=== PATIENT | female | born 1995 | race Caucasian/White ===

== ENCOUNTER → 2020-09-07 12:32 | Outpatient (CLI) | payer OTHER, SELFPAY ==
[2020-09-07 12:59] LABS: Hematocrit 38.9 % (37-47); Hemoglobin 12.7 g/dL (12.0-15.0); Mean Corp Hgb Conc 32.6 g/dL (32-36); Mean Corpuscular Volume 91.7 fL (81-99); Mean Platelet Vol. 10.9 fl (6.2-12.0); Platelet Count 236 K/mm3 (150-450); RBC Distribution Width CV 13.3 % (11.6-14.6); RBC Distribution Width SD 45.3 fl (35.1-43.9); Red Blood Count 4.24 M/mm3 (4.2-5.4); White Blood Count 9.7 K/mm3 (4.4-11.0)
== END ==
PROVIDERS: PCP Obstetrics & Gynecology; Referring Provider Obstetrics & Gynecology; Visit Provider Obstetrics & Gynecology
DX: Z34.03 Encounter for supervision of normal first pregnancy, third trimester (principal)
CPT/HCPCS: 36415; 85027

== ENCOUNTER → 2021-08-06 | Outpatient (CLI) | payer OTHER, SELFPAY | END | disposition home or self-care (01) | PROVIDERS: PCP Obstetrics & Gynecology; Visit Provider Physician Assistant | DX: Z11.52 Encounter for screening for COVID-19 (principal) | CPT/HCPCS: 87635; U0005; U0003 ==

== ENCOUNTER → 2023-03-08 | Outpatient (CLI) | payer OTHER, SELFPAY ==
[2023-03-08 16:30] LABS: hCG Titer Quant., Serum 7 mIU/mL (1-3)
== END | disposition home or self-care (01) ==
LOC: LAB 14:51
PROVIDERS: PCP Obstetrics & Gynecology; Referring Provider Obstetrics & Gynecology; Visit Provider Obstetrics & Gynecology
DX: N92.0 Excessive and frequent menstruation with regular cycle (principal)
CPT/HCPCS: 36415; 84702; 86850; 86900; 86901

== ENCOUNTER → 2023-03-10 | Outpatient (CLI) | payer OTHER, SELFPAY ==
[2023-03-10 16:12] LABS: hCG Titer Quant., Serum 2 mIU/mL (1-3)
== END | disposition home or self-care (01) ==
LOC: LAB 14:49
PROVIDERS: PCP Obstetrics & Gynecology; Visit Provider Obstetrics & Gynecology
DX: N92.0 Excessive and frequent menstruation with regular cycle (principal)
CPT/HCPCS: 36415; 84702

== ENCOUNTER → 2024-07-13 | Outpatient (CLI) | payer OTHER, SELFPAY ==
[2024-07-13 14:40] LABS: Absolute Lymphocyte Count 2.06 X10^3/uL (0.83-4.51); Absolute Neutrophil Count 5.2 X10^3/uL (2.0-7.7); Basophil# 0.03 X10^3/uL; Basophil% 0.4 % (0-1); Eosinophil# 0.08 X10^3/uL; Hematocrit 39.3 % (37-47); Hemoglobin 13.3 g/dL (12.0-15.0); Lymphocyte # 2.06 X10^3/ul (0.83-4.51); Lymphocyte % 26.1 % (19-41); Mean Corp Hgb Conc 33.8 g/dL (32-36); Mean Corpuscular Hgb 31.1 pg (27.0-32.0); Mean Corpuscular Volume 91.8 fL (81-99); Mean Platelet Vol. 10.2 fl (6.2-12.0); Monocyte% 6.3 % (0-10); NRBC Flagged by Analyzer 0 % (0-5); Neutrophil % 66.1 % (47-70); Platelet Count 251 K/mm3 (150-450); RBC Distribution Width CV 12.1 % (11.6-14.6); RBC Distribution Width SD 40.6 fl (35.1-43.9); Red Blood Count 4.28 M/mm3 (4.2-5.4); White Blood Count 7.9 K/mm3 (4.4-11.0)
[2024-07-13 15:31] LABS: Hemoglobin A1c 4.7 % (3.8-5.6)
[2024-07-13 16:54] LABS: HIV - WCH Non-Reactive (Nonreactive); Hepatitis B Surface Antigen Non-Reactive (Nonreactive); Hepatitis C Antibody Non-Reactive (Nonreactive); Rubella IgG Reactive (Nonreactive); Syphilis Antibodies Non-reactive
[2024-07-17 20:07] LABS: Chlamydia By Nucleic Acid AMP Negative (Negative); Gonococcus By Nucleic Acid AMP Negative (Negative)
== END | disposition home or self-care (01) ==
PROVIDERS: PCP Obstetrics & Gynecology; Referring Provider Advanced Practice Midwife; Visit Provider Advanced Practice Midwife
DX: O09.90 Supervision of high risk pregnancy, unspecified, unspecified trimester (principal); E66.9 Obesity, unspecified
CPT/HCPCS: 36415; 83036; 85025; 86703; 86762; 86780; 86803; 86850; 86900; 86901; 87086; 87088; 87340; 87491; 87591

== ENCOUNTER → 2024-10-31 | Outpatient (CLI) | payer OTHER, SELFPAY ==
[2024-10-31 16:26] LABS: Absolute Lymphocyte Count 1.52 X10^3/uL (0.83-4.51); Absolute Neutrophil Count 8.1 X10^3/uL (2.0-7.7); Basophil# 0.02 X10^3/uL; Basophil% 0.2 % (0-1); Eosinophil# 0.08 X10^3/uL; Eosinophils% 0.8 % (0-5); Hematocrit 35.9 % (37-47); Hemoglobin 11.7 g/dL (12.0-15.0); Lymphocyte # 1.52 X10^3/ul (0.83-4.51); Lymphocyte % 14.7 % (19-41); Mean Corp Hgb Conc 32.6 g/dL (32-36); Mean Corpuscular Hgb 30.7 pg (27.0-32.0); Mean Corpuscular Volume 94.2 fL (81-99); Mean Platelet Vol. 10.7 fl (6.2-12.0); Monocyte# 0.55 X10^3/uL; Monocyte% 5.3 % (0-10); NRBC Flagged by Analyzer 0.2 % (0-5); Neutrophil # 8.11 X10^3/uL (2.7-7.7); Neutrophil % 78.6 % (47-70); Platelet Count 236 K/mm3 (150-450); RBC Distribution Width CV 13.3 % (11.6-14.6); RBC Distribution Width SD 45.3 fl (35.1-43.9); Red Blood Count 3.81 M/mm3 (4.2-5.4); White Blood Count 10.3 K/mm3 (4.4-11.0)
[2024-10-31 16:32] LABS: Glucose Challenge Gest 1H 50g 117 mg/dL (70-140)
[2024-10-31 17:05] LABS: HIV - WCH Non-Reactive (Nonreactive); Syphilis Antibodies Non-reactive
== END | disposition home or self-care (01) ==
LOC: BWCLAB 13:45
PROVIDERS: Obstetrics & Gynecology; PCP Obstetrics & Gynecology; Referring Provider Advanced Practice Midwife; Visit Provider Advanced Practice Midwife
DX: O09.90 Supervision of high risk pregnancy, unspecified, unspecified trimester (principal); Z13.1 Encounter for screening for diabetes mellitus; Z3A.00 Weeks of gestation of pregnancy not specified
CPT/HCPCS: 36415; 82950; 85025; 86703; 86780

== ENCOUNTER → 2024-12-25 | Outpatient (CLI) | payer OTHER, SELFPAY ==
--- NOTE | 2024-12-25 08:45 | US_ITS ---
EXAM: US SECOND OR THIRD TRIMESTER , TRANSABDOMINAL CLINICAL INDICATION: growth TECHNIQUE: Transabdominal obstetrical ultrasound of the maternal pelvis and a second or third trimester with image documentation. COMPARISON: No relevant prior studies available. FINDINGS: FETUS: There is an intrauterine gestation. HEART RATE: heart rate is 129 bpm. PRESENTATION: The fetus is in a cephalic position. PLACENTA: The placenta is anterior. No placenta previa. No abruption. AMNIOTIC FLUID: CASPER is 15.7 cm. ANATOMY: Intracranial/face anatomy not seen. Spinal anatomy not seen. Abdominal anatomy not seen. Extremities not seen. Four-chamber heart not seen. Umbilical cord not seen. BIOMETRICS GESTATIONAL AGE: Gestational age 36 weeks 1 day. JENNA: JENNA 01/21/2025. EFW: Estimated weight 3138 g, 78th percentile. BPD: Biparietal diameter 9.5 cm age 38 weeks 4 days, 98th percentile. HC: Head circumference 34.6 cm age 40 weeks 1 day, 96 percentile. AC: Abdominal circumference 33.3 cm age 37 weeks 1 day, 86 percentile. FL: Femur length 7 cm age 35 weeks 5 days, 33rd percentile. MATERNAL: UTERUS: Unremarkable. No myometrial mass. CERVIX: Unremarkable as visualized. The cervix is closed. ADNEXA: Unremarkable. No adnexal masses. FREE FLUID: None. US/OB Limited With Biometrics IMPRESSION: Intrauterine gestation with an average ultrasound age of 38 weeks 1 day and an ultrasound estimated due date of 01/07/2025. heart rate is 129 bpm. Electronically Signed: Hardik Lazar MD at 22:09 EST ,
== END | disposition home or self-care (01) ==
PROVIDERS: PCP Obstetrics & Gynecology; Referring Provider Advanced Practice Midwife; Visit Provider Advanced Practice Midwife
DX: O99.213 Obesity complicating pregnancy, third trimester (principal); Z3A.38 38 weeks gestation of pregnancy
CPT/HCPCS: 76816

== ENCOUNTER → 2024-12-29 | Outpatient (CLI) | payer OTHER, SELFPAY | END | disposition home or self-care (01) | LOC: LABSPEC 16:29 | PROVIDERS: PCP Obstetrics & Gynecology; Referring Provider Obstetrics & Gynecology; Visit Provider Obstetrics & Gynecology | DX: Z34.83 Encounter for supervision of other normal pregnancy, third trimester (principal) | CPT/HCPCS: 87081 ==

== ENCOUNTER → 2025-01-05 | Outpatient (CLI) | payer OTHER, SELFPAY ==
[2025-01-05 16:38] LABS: Glucose Challenge Gest 1H 50g 122 mg/dL (70-140)
== END | disposition home or self-care (01) ==
PROVIDERS: PCP Obstetrics & Gynecology; Referring Provider Obstetrics & Gynecology; Visit Provider Obstetrics & Gynecology
DX: O36.60X0 Maternal care for excessive fetal growth, unspecified trimester, not applicable or unspecified (principal); Z3A.00 Weeks of gestation of pregnancy not specified
CPT/HCPCS: 36415; 82950

== ENCOUNTER 2025-01-11 22:35 | Outpatient (CLI) | payer OTHER, SELFPAY ==
[2025-01-11 22:44] VITALS: BP 134/77; PULSE 113
--- NOTE | 2025-01-11 22:46 | OB.TRI.HP_ITS ---
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 Home Medications ?Medication ?Instructions ?Recorded ?Last Taken ?Type multivitamin no.47-iron fum 27 1 cap PO DAILY pregnanc y 06/30/24 Unknown History mg-folate no.1 1 mg-dha 300 mg capsule (PNV-DHA) Allergy/AdvReac Type Severity Reaction Status Date / Time No Known Allergies Allergy Verified 01/22/25 09:50 Family History Grandmother Cancer Liver Grandfather Cancer lung Social History adopted: No household members: spouse and children number of children: 1 current occupational status: employed current occupation: [employer] pets and animals: Yes pets and animals: dog(s) history of recent travel: No sexually active: Yes Smoking Status: Never smoker alcohol intake: current alcohol intake frequency: a few times a week Alcohol type: other details: Not while substance use type: does not use well-balanced diet: daily or most days caffeine: Yes Type: coffee Number of servings: 1 eating out: 1-3 times/week during the past year weight has: decreased > 10 lbs what type of physical activity do you participate in: none rosalie/christian: [employer] seatbelt use: always do you feel safe at home: Yes additional social history: -Gemma Kim History 3 Elective abortions Hx Para 1 Spontaneous abortions 1 Hx # Term Pregnancies Ectopic pregnancies Hx # Pregnancies Multiple births # of living children 1 Past Pregnancies Del. Date Name GA/Weeks Outcome Route Bth Weight Gen Labor Lgth Anesthesia Del Locatn Provider FOB 09/28/20 Ankur 39 live - full term 9lbs 5oz Male epidural [facility] 03/15/23 5 spontaneous Visit Details Expected Delivery Route/Plan Labor Preferences- CB/BF classes: no labor support person: Mynor labor intervention preferences: [] pain management options preferred: limited intervention cut cord/dad catch: cord : yes PP control planned: discussed discussed possible routes of delivery and associated risks: [] special requests: [] Plans Covid status: [] Flu vaccine: declines Tdap vaccine: declines Rhogam: NA LARC form signed: yes Problem list reviewed and updated with the most current plan of care details and appropriate orders placed. Relevant counseling for the gestational age provided. Continue routine care and follow up unless otherwise noted in visit notes/problem list details OB Flowsheet Initial Weight: 238 lb Date -?-?-?-?-?-?-?-?-?-?-?-?- EGA Weight BP Urine Prot -?-?-?-?-?-?-?-?-?-?-?-?- Glucose FHR FuHt Pres Dilation -?-?-?-?-?-?-?-?-?-?-?-?- Effaced St Visit Note 07/13/24 -?-?-?-?-?-?-?-?-?-?-?-?- 12w 4d 238 lb (+0 oz) 116/76 -?-?-?-?-?-?-?--?-?-?-?-?- 163 -?-?-?-?-?-?-?-?-?-?-?-?- KW- CRL 55mm and not cons with dates. Measuring 12.4 weeks today- 11 day difference. JENNA changed. Declines NIPT. MFM anatomy US ordered. 08/10/24 -?-?-?-?-?-?-?-?-?-?-?-?- 16w 4d 243 lb 2 oz (+5 lb 2 oz) 123/81 Negative -?-?-?-?-?-?-?-?-?-?-?-?- Negative 150 -?-?-?-?-?-?-?-?-?-?-?-?- JV- no lof, vagi nal bleeding, or cramping. no complaints today 09/08/24 -?-?-?-?-?-?-?-?-?-?-?-?- 20w 5d 249 lb (+11 lb) 134/81 Negative -?-?-?-?-?-?-?-?-?-?-?-?- Negative 146 -?-?-?-?-?-?-?-?-?-?-?-?- LC- no vb/crampi ng. normal us. no concerns. 10/02/24 -?-?-?-?-?-?-?-?-?-?-?-?- 24w 1d 257 lb (+19 lb) 134/82 Negative -?-?-?-?-?-?-?-?-?-?-?-?- Negative 140 -?-?-?-?-?-?-?-?-?-?-?-?- SM- no vb lof go od fm no regular ctx 10/31/24 -?-?-?-?-?-?-?-?-?-?-?-?- 28w 2d 265 lb 6 oz (+27 lb 6 oz) 122/84 Negative -?-?-?-?-?-?-?-?-?-?-?-?- Negative 146 28 -?-?-?-?-?-?-?-?-?-?-?-?- MH-No Vb, LOF. G ood FM. Larc. Declines tdap. 28 wk labs pending 11/14/24 -?-?-?-?-?-?-?-?-?-?-?-?- 30w 2d 167 lb (-71 lb) 122/82 Negative -?-?-?-?-?-?-?-?-?-?-?-?- Negative 150 30 -?-?-?-?-?-?-?-?-?-?-?-?- JV- normal gct a nd cbc. declines tdap. info on rsv given. 11/27/24 -?-?-?-?-?-?-?-?-?-?-?-?- 32w 1d 270 lb (+32 lb) 119/80 Negative -?-?-?-?-?-?-?-?-?-?-?-?- Negative 125 33 -?-?-?-?-?-?-?-?-?-?-?-?- JV- no lof, vagi nal bleeding or cramping. declines tdap and unsure about rsv. 12/14/24 -?-?-?-?-?-?-?-?-?-?-?-?- 34w 4d 272 lb (+34 lb) 148/104 129/83 Trace -?-?-?-?-?-?-?-?-?-?-?-?- Negative 130 35 -?-?-?-?-?-?-?-?-?-?-?-?- KW- no vb/lof/ct x. good fm. KW- no vb/lof/ctx. good fm. growth US ordered for BMI 12/29/24 -?-?-?-?-?-?--?-?-?-?-?-?- 36w 5d 273 lb (+35 lb) 132/85 Negative -?-?-?-?-?-?-?-?-?-?-?-?- Negative 140 135 36 Cephalic 0 -?-?-?-?-?-?-?-?-?--?-?-?- 0 SM- no v b lof good fm no regualr ctx 01/05/25 -?-?-?-?-?-?-?-?-?-?-?-?- 37w 5d 274 lb 4 oz (+36 lb 4 oz) 124/84 Negative -?-?-?-?-?-?-?-?-?-?-?-?- Negative 125 39 Cephalic 2 .5 -?-?-?-?-?-?-?-?-?-?-?-?- 60 -3 KW- no vb/ lof/lof/ctx. good fm. labor precautions 01/11/25 -?-?-?-?-?-?-?-?-?-?-?-?- 38w 4d 275 lb 2 oz (+37 lb 2 oz) 116/75 Negative -?-?-?-?-?-?-?-?-?-?-?-?- Negative 124 38 Cephalic 3 -?-?-?-?-?-?-?-?-?-?-?-?- 70 -3 JV- normal repeat glucola. AC 86th%. pt delivered a 9lb 5 oz baby without complications. pt reassured. 01/19/25 -?-?-?-?-?-?-?-?-?-?-?-?- 39w 5d 277 lb 4 oz (+39 lb 4 oz) 130/85 Negative -?-?-?-?-?-?-?-?-?-?-?-?- Negative 130 40 Cephalic 4 -?-?-?-?-?-?-?-?-?-?-?-?- 80 -3 KW- no vb/ lof/ctx. good fm. discussed possible IOL if no labor this weekend. 01/22/25 -?-?-?-?-?-?-?-?-?-?-?-?- 40w 1d 272 lb 4 oz (+34 lb 4 oz) 107/62 Negative -?-?-?-?-?-?-?-?-?-?-?-?- Negative 130 39 Cephalic 4 .5 -?-?-?-?-?-?-?-?-?-?-?-?- 90 -2 KW- no vb/ lof/ctx. good fm. membrane sweep today. IOL for wednesday ROS Constitutional Constitutional: Reports systems reviewed and no addt'l complaints, except as documented Gastrointestinal Gastrointestinal: Denies bloating, constipation, cramping, diarrhea, nausea or vomiting Genitourinary Genitourinary: Reports other Details: Denies vaginal odor, vaginal bleeding, or vaginal discharge ; Denies difficulty urinating or flank pain NST FHR Rate Baby A Baseline: 130 Variability:: Moderate Accelerations:: 15 x 15 Decelerations:: None NST Reactive:: Yes FHR Category:: Category I Assessment & Plan (1) False labor after 37 completed weeks of gestation: COMMENT: unchanged cervical exam with less ctx. safe for d/c home. PLAN: negative for rom. ok to dc to home Charges/Coding Multi Select Codes Urinary/Genital Urinary/Genital CPT Codes: 30860-16 non-stress test Interp
--- NOTE | 2025-01-11 22:46 | OB.TRI.NOTE ---
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 Home Medications ?Medication ?Instructions ?Recorded ?Last Taken ?Type multivitamin no.47-iron fum 27 1 cap PO DAILY 06/30/24 Unknown History mg-folate no.1 1 mg-dha 300 mg capsule (PNV-DHA) Allergy/AdvReac Type Severity Reaction Status Date / Time No Known Allergies Allergy Verified 01/22/25 09:50 Family History Grandmother Cancer Liver Grandfather Cancer lung Social History adopted: No household members: spouse and children number of children: 1 current occupational status: employed current occupation: [employer] pets and animals: Yes pets and animals: dog(s) history of recent travel: No sexually active: Yes Smoking Status: Never smoker alcohol intake: current alcohol intake frequency: a few times a week Alcohol type: other details: Not while substance use type: does not use well-balanced diet: daily or most days caffeine: Yes Type: coffee Number of servings: 1 eating out: 1-3 times/week during the past year weight has: decreased > 10 lbs what type of physical activity do you participate in: none rosalie/mormonism: [employer] seatbelt use: always do you feel safe at home: Yes additional social history: -Gemma Kim History 3 Elective abortions Hx Para 1 Spontaneous abortions 1 Hx # Term Pregnancies Ectopic pregnancies Hx # Pregnancies Multiple births # of living children 1 Past Pregnancies Del. Date Name GA/Weeks Outcome Route Bth Weight Gen Labor Lgth Anesthesia Del Locatn Provider FOB 09/28/20 Ankur 39 live - full term 9lbs 5oz Male epidural [facility] 03/15/23 5 spontaneous Visit Details Expected Delivery Route/Plan Labor Preferences- CB/BF classes: no labor support person: Mynor labor intervention preferences: [] pain management options preferred: limited intervention cut cord/dad catch: cord : yes PP control planned: discussed discussed possible routes of delivery and associated risks: [] special requests: [] Plans Covid status: [] Flu vaccine: declines Tdap vaccine: declines Rhogam: NA LARC form signed: yes Problem list reviewed and updated with the most current plan of care details and appropriate orders placed. Relevant counseling for the gestational age provided. Continue routine care and follow up unless otherwise noted in visit notes/problem list details OB Flowsheet Initial Weight: 238 lb Date <del>?</del> EGA Weight BP Urine Prot <del>?</del> Glucose FHR FuHt Pres Dilation <del>?</del> Effaced St Visit Note 07/13/24 <del>?</del> 12w 4d 238 lb (+0 oz) 116/76 <del>?</del> 163 <del>?</del> KW- CRL 55mm and not cons with dates. Measuring 12.4 weeks today- 11 day difference. JENNA changed. Declines NIPT. MFM anatomy US ordered. 08/10/24 <del>?</del> 16w 4d 243 lb 2 oz (+5 lb 2 oz) 123/81 Negative <del>?</del> Negative 150 <del>?</del> JV- no lof, vaginal bleeding, or cramping. no complaints today 09/08/24 <del>?</del> 20w 5d 249 lb (+11 lb) 134/81 Negative <del>?</del> Negative 146 <del>?</del> LC- no vb/cramping. normal us. no concerns. 10/02/24 <del>?</del> 24w 1d 257 lb (+19 lb) 134/82 Negative <del>?</del> Negative 140 <del>?</del> SM- no vb lof good fm no regular ctx 10/31/24 <del>?</del> 28w 2d 265 lb 6 oz (+27 lb 6 oz) 122/84 Negative <del>?</del> Negative 146 28 <del>?</del> MH-No Vb, LOF. Good FM. Larc. Declines tdap. 28 wk labs pending 11/14/24 <del>?</del> 30w 2d 167 lb (-71 lb) 122/82 Negative <del>?</del> Negative 150 30 <del>?</del> JV- normal gct and cbc. declines tdap. info on rsv given. 11/27/24 <del>?</del> 32w 1d 270 lb (+32 lb) 119/80 Negative <del>?</del> Negative 125 33 <del>?</del> JV- no lof, vaginal bleeding or cramping. declines tdap and unsure about rsv. 12/14/24 <del>?</del> 34w 4d 272 lb (+34 lb) 148/104 129/83 Trace <del>?</del> Negative 130 35 <del>?</del> KW- no vb/lof/ctx. good fm. KW- no vb/lof/ctx. good fm. growth US ordered for BMI 12/29/24 <del>?</del> 36w 5d 273 lb (+35 lb) 132/85 Negative <del>?</del> Negative 140 135 36 Cephalic 0 <del>?</del> 0 SM- no vb lof good fm no regualr ctx 01/05/25 <del>?</del> 37w 5d 274 lb 4 oz (+36 lb 4 oz) 124/84 Negative <del>?</del> Negative 125 39 Cephalic 2.5 <del>?</del> 60 -3 KW- no vb/lof/lof/ctx. good fm. labor precautions 01/11/25 <del>?</del> 38w 4d 275 lb 2 oz (+37 lb 2 oz) 116/75 Negative <del>?</del> Negative 124 38 Cephalic 3 <del>?</del> 70 -3 JV- normal repeat glucola. AC 86th%. pt delivered a 9lb 5 oz baby without complications. pt reassured. 01/19/25 <del>?</del> 39w 5d 277 lb 4 oz (+39 lb 4 oz) 130/85 Negative <del>?</del> Negative 130 40 Cephalic 4 <del>?</del> 80 -3 KW- no vb/lof/ctx. good fm. discussed possible IOL if no labor this weekend. 01/22/25 <del>?</del> 40w 1d 272 lb 4 oz (+34 lb 4 oz) 107/62 Negative <del>?</del> Negative 130 39 Cephalic 4.5 <del>?</del> 90 -2 KW- no vb/lof/ctx. good fm. membrane sweep today. IOL for wednesday ROS Constitutional Constitutional: Reports systems reviewed and no addt'l complaints, except as documented Gastrointestinal Gastrointestinal: Denies bloating, constipation, cramping, diarrhea, nausea or vomiting Genitourinary Genitourinary: Reports other Details: Denies vaginal odor, vaginal bleeding, or vaginal discharge ; Denies difficulty urinating or flank pain NST FHR Rate Baby A Baseline: 130 Variability:: Moderate Accelerations:: 15 x 15 Decelerations:: None NST Reactive:: Yes FHR Category:: Category I Assessment & Plan (1) False labor after 37 completed weeks of gestation: COMMENT: unchanged cervical exam with less ctx. safe for d/c home. PLAN: negative for rom. ok to dc to home Charges/Coding Multi Select Codes Urinary/Genital Urinary/Genital CPT Codes: 94918-57 non-stress test Interp
[2025-01-11 22:50] VITALS: RESP 16; TEMP 36.7
[2025-01-11 23:09] VITALS: BMI 43.2
[2025-01-11 23:35] LABS: ROM Internal Control Test YES-OK TO RESULT pt. (Internal QC); ROM Patient Test Negative (Negative)
[2025-01-11 23:36] LABS: Record Kit Lot#, ROM+ K2871
== END 2025-01-11 23:50 | disposition home or self-care (01) ==
LOC: WPOUT 22:38 → WP 22:38
PROVIDERS: PCP Obstetrics & Gynecology; Referring Provider Obstetrics & Gynecology; Visit Provider Obstetrics & Gynecology
DX: O47.1 False labor at or after 37 completed weeks of gestation (principal); Z3A.38 38 weeks gestation of pregnancy; Z87.59 Personal history of other complications of pregnancy, childbirth and the puerperium
CPT/HCPCS: 59050; 84112; 99221; G0378

== ENCOUNTER 2025-01-13 22:03 | Outpatient (CLI) | payer OTHER, SELFPAY ==
[2025-01-13 22:22] VITALS: PULSE 106; RESP 14; TEMP 37.3; O2SAT 96
[2025-01-13 22:23] VITALS: BP 119/72; PULSE 105
[2025-01-13 22:39] VITALS: BMI 43.1
--- NOTE | 2025-01-16 13:20 | OB.TRI.HP_ITS ---
HPI - General General Date of Service: 01/13/25 Chief Complaint: contractions HPI Narrative HEIDI PACKER, is a 29 F who presents at 38.6 with contractions at home with worsening intensity. denies lof/vb. has active fetus. 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 Home Medications ?Medication ?Instructions ?Recorded ?Last Taken ?Type multivitamin no.47-iron fum 27 1 cap PO DAILY pregnanc y 06/30/24 Unknown History mg-folate no.1 1 mg-dha 300 mg capsule (PNV-DHA) Allergy/AdvReac Type Severity Reaction Status Date / Time No Known Allergies Allergy Verified 01/13/25 22:31 Family History Grandmother Cancer Liver Grandfather Cancer lung Social History adopted: No household members: spouse and children number of children: 1 current occupational status: employed current occupation: [employer] pets and animals: Yes pets and animals: dog(s) history of recent travel: No sexually active: Yes Smoking Status: Never smoker alcohol intake: current alcohol intake frequency: a few times a week Alcohol type: other details: Not while substance use type: does not use well-balanced diet: daily or most days caffeine: Yes Type: coffee Number of servings: 1 eating out: 1-3 times/week during the past year weight has: decreased > 10 lbs what type of physical activity do you participate in: none rosalie/pentecostalism: Judaism seatbelt use: always do you feel safe at home: Yes additional social history: -[employer]- [employer] History 3 Elective abortions Hx Para 1 Spontaneous abortions 1 Hx # Term Pregnancies Ectopic pregnancies Hx # Pregnancies Multiple births # of living children 1 Past Pregnancies Del. Date Name GA/Weeks Outcome Route Bth Weight Gen Labor Lgth Anesthesia Del Locatn Provider FOB 09/28/20 Ankur 39 live - full term 9lbs 5oz Male epidural [facility] 03/15/23 5 spontaneous Visit Details Expected Delivery Route/Plan Labor Preferences- CB/BF classes: no labor support person: Mynor labor intervention preferences: [] pain management options preferred: limited intervention cut cord/dad catch: cord : yes PP control planned: discussed discussed possible routes of delivery and associated risks: [] special requests: [] Plans Covid status: [] Flu vaccine: declines Tdap vaccine: declines Rhogam: NA LARC form signed: yes Problem list reviewed and updated with the most current plan of care details and appropriate orders placed. Relevant counseling for the gestational age provided. Continue routine care and follow up unless otherwise noted in visit notes/problem list details OB Flowsheet Initial Weight: 238 lb Date -?-?-?-?-?-?-?-?-?-?-?-?- EGA Weight BP Urine Prot -?-?-?-?-?-?-?-?-?-?-?-?- Glucose FHR FuHt Pres Dilation -?-?-?-?-?-?-?-?-?-?-?-?- Effaced St Visit Note 07/13/24 -?-?-?-?-?-?-?-?-?-?-?-?- 12w 4d 238 lb (+0 oz) 116/76 -?-?-?-?-?-?-?-?-?-?-?-?- 163 -?-?-?-?-?-?-?-?-?-?-?-?- KW- CRL 55mm and not cons with dates. Measuring 12.4 weeks today- 11 day difference. JENNA changed. Declines NIPT. MFM anatomy US ordered. 08/10/24 -?-?-?-?-?-?-?-?-?-?-?-?- 16w 4d 243 lb 2 oz (+5 lb 2 oz) 123/81 Negative -?-?-?-?-?-?-?-?-?-?-?-?- Negative 150 -?-?-?-?-?-?-?-?-?-?-?-?- JV- no lof, vagi nal bleeding, or cramping. no complaints today 09/08/24 -?-?-?-?-?-?-?-?-?-?-?-?- 20w 5d 249 lb (+11 lb) 134/81 Negative -?-?-?-?-?-?-?-?-?-?-?-?- Negative 146 -?-?-?-?-?-?-?-?-?-?-?-?- LC- no vb/crampi ng. normal us. no concerns. 10/02/24 -?-?-?-?-?-?-?-?-?-?-?-?- 24w 1d 257 lb (+19 lb) 134/82 Negative -?-?-?-?-?-?-?-?-?-?-?-?- Negative 140 -?-?-?-?-?-?-?-?-?-?-?-?- SM- no vb lof go od fm no regular ctx 10/31/24 -?-?-?-?-?-?-?-?-?-?-?-?- 28w 2d 265 lb 6 oz (+27 lb 6 oz) 122/84 Negative -?-?-?-?-?-?-?-?-?-?-?-?- Negative 146 28 -?-?-?-?-?-?-?-?-?-?-?-?- MH-No Vb, LOF. G ood FM. Larc. Declines tdap. 28 wk labs pending 11/14/24 -?-?-?-?-?-?-?-?-?-?-?-?- 30w 2d 167 lb (-71 lb) 122/82 Negative -?-?-?-?-?-?-?-?-?-?-?-?- Negative 150 30 -?-?-?-?-?-?-?-?-?-?-?-?- JV- normal gct a nd cbc. declines tdap. info on rsv given. 11/27/24 -?-?-?-?-?-?-?-?-?-?-?-?- 32w 1d 270 lb (+32 lb) 119/80 Negative -?-?-?-?-?-?-?-?-?-?-?-?- Negative 125 33 -?-?-?-?-?-?-?-?-?-?-?-?- JV- no lof, vagi nal bleeding or cramping. declines tdap and unsure about rsv. 12/14/24 -?-?-?-?-?-?-?-?-?-?-?-?- 34w 4d 272 lb (+34 lb) 148/104 129/83 Trace -?-?-?-?-?-?-?-?-?-?-?-?- Negative 130 35 -?-?-?-?-?-?-?-?-?-?-?-?- KW- no vb/lof/ct x. good fm. KW- no vb/lof/ctx. good fm. growth US ordered for BMI 12/29/24 -?-?-?-?-?-?-?-?-?-?-?-?- 36w 5d 273 lb (+35 lb) 132/85 Negative -?-?-?-?-?-?-?-?-?-?-?-?- Negative 140 135 36 Cephalic 0 -?-?-?-?-?-?-?-?-?-?-?-?- 0 SM- no v b lof good fm no regualr ctx 01/05/25 -?-?-?-?-?-?-?-?-?-?-?-?- 37w 5d 274 lb 4 oz (+36 lb 4 oz) 124/84 Negative -?-?-?-?-?-?-?-?-?-?-?-?- Negative 125 39 Cephalic 2 .5 -?-?-?-?-?-?-?-?-?-?-?-?- 60 -3 KW- no vb/ lof/lof/ctx. good fm. labor precautions 01/11/25 -?-?-?-?-?-?-?-?-?-?-?-?- 38w 4d 275 lb 2 oz (+37 lb 2 oz) 116/75 Negative -?-?-?-?-?-?-?-?-?-?-?-?- Negative 124 38 Cephalic 3 -?-?-?-?-?-?-?-?-?-?-?-?- 70 -3 JV- normal repeat glucola. AC 86th%. pt delivered a 9lb 5 oz baby without complications. pt reassured. NST FHR Rate Baby A Baseline: 135 Variability:: Moderate Accelerations:: 15 x 15 Decelerations:: None NST Reactive:: Yes FHR Category:: Category I Uterine Activity:: irregular Assessment & Plan (1) False labor after 37 completed weeks of gestation: COMMENT: unchanged cervical exam with less ctx. safe for d/c home. PLAN: Plan Patient presents for triage evaluation secondary to contractions at home, once to hospital, contractions dissipated and no longer feeling them. FHT: Moderate variability reactive no decelerations category I tracing Rayne: irregular Contractions Assessment and plan: Reactive NST, reassuring maternal and status patient discharged to home to follow-up in office/prn. labor precautions provided. See problem list details for additional plan information. Charges/Coding Procedures Urinary/Genital [id number]: 79862-52 non-stress test Interp
--- NOTE | 2025-01-16 13:20 | OB.TRI.NOTE ---
HPI - General General Date of Service: 01/13/25 Chief Complaint: contractions HPI Narrative HEIDI PACKER, is a 29 F who presents at 38.6 with contractions at home with worsening intensity. denies lof/vb. has active fetus. 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 Home Medications ?Medication ?Instructions ?Recorded ?Last Taken ?Type multivitamin no.47-iron fum 27 1 cap PO DAILY 06/30/24 Unknown History mg-folate no.1 1 mg-dha 300 mg capsule (PNV-DHA) Allergy/AdvReac Type Severity Reaction Status Date / Time No Known Allergies Allergy Verified 01/13/25 22:31 Family History Grandmother Cancer Liver Grandfather Cancer lung Social History adopted: No household members: spouse and children number of children: 1 current occupational status: employed current occupation: [employer] pets and animals: Yes pets and animals: dog(s) history of recent travel: No sexually active: Yes Smoking Status: Never smoker alcohol intake: current alcohol intake frequency: a few times a week Alcohol type: other details: Not while substance use type: does not use well-balanced diet: daily or most days caffeine: Yes Type: coffee Number of servings: 1 eating out: 1-3 times/week during the past year weight has: decreased > 10 lbs what type of physical activity do you participate in: none rosalie/cheondoism: Taoist seatbelt use: always do you feel safe at home: Yes additional social history: -Mynor- Judy History 3 Elective abortions Hx Para 1 Spontaneous abortions 1 Hx # Term Pregnancies Ectopic pregnancies Hx # Pregnancies Multiple births # of living children 1 Past Pregnancies Del. Date Name GA/Weeks Outcome Route Bth Weight Infant Gen Labor Lgth Anesthesia Del Locatn Provider FOB 09/28/20 Ankur 39 live - full term 9lbs 5oz Male epidural [facility] 03/15/23 5 spontaneous Visit Details Expected Delivery Route/Plan Labor Preferences- CB/BF classes: no labor support person: Mynor labor intervention preferences: [] pain management options preferred: limited intervention cut cord/dad catch: cord : yes PP control planned: discussed discussed possible routes of delivery and associated risks: [] special requests: [] Plans Covid status: [] Flu vaccine: declines Tdap vaccine: declines Rhogam: NA LARC form signed: yes Problem list reviewed and updated with the most current plan of care details and appropriate orders placed. Relevant counseling for the gestational age provided. Continue routine care and follow up unless otherwise noted in visit notes/problem list details OB Flowsheet Initial Weight: 238 lb Date <del>?</del> EGA Weight BP Urine Prot <del>?</del> Glucose FHR FuHt Pres Dilation <del>?</del> Effaced St Visit Note 07/13/24 <del>?</del> 12w 4d 238 lb (+0 oz) 116/76 <del>?</del> 163 <del>?</del> KW- CRL 55mm and not cons with dates. Measuring 12.4 weeks today- 11 day difference. JENNA changed. Declines NIPT. MFM anatomy US ordered. 08/10/24 <del>?</del> 16w 4d 243 lb 2 oz (+5 lb 2 oz) 123/81 Negative <del>?</del> Negative 150 <del>?</del> JV- no lof, vaginal bleeding, or cramping. no complaints today 09/08/24 <del>?</del> 20w 5d 249 lb (+11 lb) 134/81 Negative <del>?</del> Negative 146 <del>?</del> LC- no vb/cramping. normal us. no concerns. 10/02/24 <del>?</del> 24w 1d 257 lb (+19 lb) 134/82 Negative <del>?</del> Negative 140 <del>?</del> SM- no vb lof good fm no regular ctx 10/31/24 <del>?</del> 28w 2d 265 lb 6 oz (+27 lb 6 oz) 122/84 Negative <del>?</del> Negative 146 28 <del>?</del> MH-No Vb, LOF. Good FM. Larc. Declines tdap. 28 wk labs pending 11/14/24 <del>?</del> 30w 2d 167 lb (-71 lb) 122/82 Negative <del>?</del> Negative 150 30 <del>?</del> JV- normal gct and cbc. declines tdap. info on rsv given. 11/27/24 <del>?</del> 32w 1d 270 lb (+32 lb) 119/80 Negative <del>?</del> Negative 125 33 <del>?</del> JV- no lof, vaginal bleeding or cramping. declines tdap and unsure about rsv. 12/14/24 <del>?</del> 34w 4d 272 lb (+34 lb) 148/104 129/83 Trace <del>?</del> Negative 130 35 <del>?</del> KW- no vb/lof/ctx. good fm. KW- no vb/lof/ctx. good fm. growth US ordered for BMI 12/29/24 <del>?</del> 36w 5d 273 lb (+35 lb) 132/85 Negative <del>?</del> Negative 140 135 36 Cephalic 0 <del>?</del> 0 SM- no vb lof good fm no regualr ctx 01/05/25 <del>?</del> 37w 5d 274 lb 4 oz (+36 lb 4 oz) 124/84 Negative <del>?</del> Negative 125 39 Cephalic 2.5 <del>?</del> 60 -3 KW- no vb/lof/lof/ctx. good fm. labor precautions 01/11/25 <del>?</del> 38w 4d 275 lb 2 oz (+37 lb 2 oz) 116/75 Negative <del>?</del> Negative 124 38 Cephalic 3 <del>?</del> 70 -3 JV- normal repeat glucola. AC 86th%. pt delivered a 9lb 5 oz baby without complications. pt reassured. NST FHR Rate Baby A Baseline: 135 Variability:: Moderate Accelerations:: 15 x 15 Decelerations:: None NST Reactive:: Yes FHR Category:: Category I Uterine Activity:: irregular Assessment & Plan (1) False labor after 37 completed weeks of gestation: COMMENT: unchanged cervical exam with less ctx. safe for d/c home. PLAN: Plan Patient presents for triage evaluation secondary to contractions at home, once to hospital, contractions dissipated and no longer feeling them. FHT: Moderate variability reactive no decelerations category I tracing [place]: irregular Contractions Assessment and plan: Reactive NST, reassuring maternal and status patient discharged to home to follow-up in office/prn. labor precautions provided. See problem list details for additional plan information. Charges/Coding Procedures Urinary/Genital [id number]: [id number] non-stress test Interp
== END 2025-01-13 23:58 | disposition home or self-care (01) ==
LOC: WPOUT 22:11 → WP 22:12
PROVIDERS: Visit Provider Registered Nurse
DX: O47.1 False labor at or after 37 completed weeks of gestation (principal); Z3A.38 38 weeks gestation of pregnancy
CPT/HCPCS: 59025; 59050; 99221; G0378

== ENCOUNTER 2025-01-26 10:22 | Inpatient (IN) | payer OTHER, SELFPAY ==
[2025-01-26] VITALS (42 sets, daily range): BP systolic 103–164; BP diastolic 51–87; PULSE 83–117; RESP 16–18; TEMP 36.2–37.1; O2SAT 94–100; BMI 41.8
[2025-01-26 10:06] LABS: ROM Internal Control Test YES-OK TO RESULT pt. (Internal QC)
[2025-01-26 10:08] LABS: ROM Patient Test POSITIVE (Negative); Record Kit Lot#, ROM+ K2871
[2025-01-26] MEDS: Lactated Ringers 1,000 ML 50 ML IV (10:50)
[2025-01-26 11:24] LABS: Absolute Neutrophil Count 10.3 X10^3/uL (2.0-7.7); Basophil# 0.03 X10^3/uL; Basophil% 0.2 % (0-1); Eosinophil# 0.07 X10^3/uL; Eosinophils% 0.5 % (0-5); Hematocrit 39.3 % (37-47); Hemoglobin 13.1 g/dL (12.0-15.0); Lymphocyte % 15.6 % (19-41); Mean Corp Hgb Conc 33.3 g/dL (32-36); Mean Corpuscular Hgb 30.1 pg (27.0-32.0); Mean Corpuscular Volume 90.3 fL (81-99); Mean Platelet Vol. 11.5 fl (6.2-12.0); Monocyte# 0.96 X10^3/uL; Monocyte% 7.1 % (0-10); NRBC Flagged by Analyzer 0 % (0-5); Neutrophil # 10.26 X10^3/uL (2.7-7.7); Neutrophil % 76.2 % (47-70); Platelet Count 267 K/mm3 (150-450); RBC Distribution Width CV 13.7 % (11.6-14.6); RBC Distribution Width SD 45.1 fl (35.1-43.9); Red Blood Count 4.35 M/mm3 (4.2-5.4); White Blood Count 13.5 K/mm3 (4.4-11.0)
[2025-01-26 11:44] LABS: Syphilis Antibodies Nonreactive (Nonreactive)
[2025-01-26] MEDS: Oxytocin 15 Units/NS 250ml 15 UNITS/250 ML IV.SOLN 2 UNITS IV (12:32)
--- NOTE | 2025-01-26 12:46 | HP.PCM.OB_ITS ---
HPI - General General Date of Admission: 01/26/25 HPI Narrative HEIDI PACKER, is a 29 F who presents at 40.5 awoke with saturated pajamas around 0630. active fetus, denies consistent or painful contractions. no vb. Maternal Data Information JENNA Calculator Estimated Delivery Date Method Current WG Current Estimate 01/21/25 Ultrasound #1 40w 5d Other Estimates 02/01/25 LMP (Certain) 39w 1d Final JENNA: 01/21/25 Gestational age: 40.5 PFSH PFSH Medical History Varicose veins during Macrosomia affecting management of mother Home Medications ?Medication ?Instructions ?Recorded ?Last Taken ?Type multivitamin no.47-iron fum 27 1 cap PO DAILY pregnanc y 06/30/24 01/25/25 History mg-folate no.1 1 mg-dha 300 mg capsule (PNV-DHA) Allergy/AdvReac Type Severity Reaction Status Date / Time No Known Allergies Allergy Verified 01/26/25 09:37 Family History Grandmother Cancer Liver Grandfather Cancer lung Social History adopted: No household members: spouse and children number of children: 1 current occupational status: employed current occupation: [employer] pets and animals: Yes pets and animals: dog(s) history of recent travel: No sexually active: Yes Smoking Status: Never smoker alcohol intake: current alcohol intake frequency: a few times a week Alcohol type: other details: Not while substance use type: does not use well-balanced diet: daily or most days caffeine: Yes Type: coffee Number of servings: 1 eating out: 1-3 times/week during the past year weight has: decreased > 10 lbs what type of physical activity do you participate in: none rosalie/bahai: [employer] seatbelt use: always do you feel safe at home: Yes additional social history: -Mynor- [employer] History 3 Elective abortions Hx Para 1 Spontaneous abortions 1 Hx # Term Pregnancies Ectopic pregnancies Hx # Pregnancies Multiple births # of living children 1 Past Pregnancies Del. Date Name GA/Weeks Outcome Route Bth Weight Infant Gen Labor Lgth Anesthesia Del Locatn Provider FOB 09/28/20 Ankur 39 live - full term 9lbs 5oz Male epidural [facility] 03/15/23 5 spontaneous Visit Details Expected Delivery Route/Plan Labor Preferences- CB/BF classes: no labor support person: Mynor labor intervention preferences: [] pain management options preferred: limited intervention cut cord/dad catch: cord : yes PP control planned: discussed discussed possible routes of delivery and associated risks: [] special requests: [] Plans Covid status: [] Flu vaccine: declines Tdap vaccine: declines Rhogam: NA LARC form signed: yes Problem list reviewed and updated with the most current plan of care details and appropriate orders placed. Relevant counseling for the gestational age provided. Continue routine care and follow up unless otherwise noted in visit notes/problem list details OB Flowsheet Initial Weight: 238 lb Date -?-?-?-?-?-?-?-?-?-?-?-?- EGA Weight BP Urine Prot -?-?-?-?-?-?-?-?-?-?-?-?- Glucose FHR FuHt Pres Dilation -?-?-?-?-?-?-?-?-?-?-?-?- Effaced St Visit Note 07/13/24 -?-?-?-?-?-?-?-?-?-?-?-?- 12w 4d 238 lb (+0 oz) 116/76 -?-?-?-?-?-?-?-?-?-?-?-?- 163 -?-?-?-?-?-?-?-?-?-?-?-?- KW- CRL 55mm and not cons with dates. Measuring 12.4 weeks today- 11 day difference. JENNA changed. Declines NIPT. MFM anatomy US ordered. 08/10/24 -?-?-?-?-?-?-?-?-?-?-?-?- 16w 4d 243 lb 2 oz (+5 lb 2 oz) 123/81 Negative -?-?-?-?-?-?-?-?-?-?-?-?- Negative 150 -?-?-?-?-?-?-?-?-?-?-?-?- JV- no lof, vagi nal bleeding, or cramping. no complaints today 09/08/24 -?-?-?-?-?-?-?-?-?-?-?-?- 20w 5d 249 lb (+11 lb) 134/81 Negative -?-?-?-?-?-?-?-?-?-?-?-?- Negative 146 -?-?-?-?-?-?-?-?-?-?-?-?- LC- no vb/crampi ng. normal us. no concerns. 10/02/24 -?-?-?-?-?-?-?-?-?-?-?-?- 24w 1d 257 lb (+19 lb) 134/82 Negative -?-?-?-?-?-?-?-?-?-?-?-?- Negative 140 -?-?-?-?-?-?-?-?-?-?-?-?- SM- no vb lof go od fm no regular ctx 10/31/24 -?-?-?-?-?-?-?-?-?-?-?-?- 28w 2d 265 lb 6 oz (+27 lb 6 oz) 122/84 Negative -?-?-?-?-?-?-?-?-?-?-?-?- Negative 146 28 -?-?-?-?-?-?-?-?-?-?-?-?- MH-No Vb, LOF. G ood FM. Larc. Declines tdap. 28 wk labs pending 11/14/24 -?-?-?-?-?-?-?-?-?-?-?-?- 30w 2d 167 lb (-71 lb) 122/82 Negative -?-?-?-?-?--?-?-?-?-?-?-?- Negative 150 30 -?-?-?-?-?-?-?-?-?-?-?-?- JV- normal gct a nd cbc. declines tdap. info on rsv given. 11/27/24 -?-?-?-?-?-?-?-?-?-?-?-?- 32w 1d 270 lb (+32 lb) 119/80 Negative -?-?-?-?-?-?-?-?-?-?-?-?- Negative 125 33 -?-?-?-?-?-?-?-?-?-?-?-?- JV- no lof, vagi nal bleeding or cramping. declines tdap and unsure about rsv. 12/14/24 -?-?-?-?-?-?-?-?-?-?-?-?- 34w 4d 272 lb (+34 lb) 148/104 129/83 Trace -?-?-?-?-?-?-?-?-?-?-?-?- Negative 130 35 -?-?-?-?-?-?-?-?-?-?-?-?- KW- no vb/lof/ct x. good fm. KW- no vb/lof/ctx. good fm. growth US ordered for BMI 12/29/24 -?-?-?-?-?-?-?-?-?-?-?-?- 36w 5d 273 lb (+35 lb) 132/85 Negative -?-?-?-?-?-?-?-?-?-?-?-?- Negative 140 135 36 Cephalic 0 -?-?-?-?-?-?-?-?-?-?-?-?- 0 SM- no v b lof good fm no regualr ctx 01/05/25 -?-?-?-?-?-?-?-?-?-?-?-?- 37w 5d 274 lb 4 oz (+36 lb 4 oz) 124/84 Negative -?-?-?-?-?-?-?-?-?-?-?-?- Negative 125 39 Cephalic 2 .5 -?-?-?-?-?-?-?-?-?-?-?-?- 60 -3 KW- no vb/ lof/lof/ctx. good fm. labor precautions 01/11/25 -?-?-?-?-?-?-?-?-?-?-?-?- 38w 4d 275 lb 2 oz (+37 lb 2 oz) 116/75 Negative -?-?-?-?-?-?-?-?-?-?-?-?- Negative 124 38 Cephalic 3 -?-?-?-?-?-?-?-?-?-?-?-?- 70 -3 JV- normal repeat glucola. AC 86th%. pt delivered a 9lb 5 oz baby without complications. pt reassured. 01/19/25 -?-?-?-?-?-?-?-?-?-?-?-?- 39w 5d 277 lb 4 oz (+39 lb 4 oz) 130/85 Negative -?-?-?-?-?-?-?-?-?-?-?-?- Negative 130 40 Cephalic 4 -?-?-?-?-?-?-?-?-?-?-?-?- 80 -3 KW- no vb/ lof/ctx. good fm. discussed possible IOL if no labor this weekend. 01/22/25 -?-?-?-?-?-?-?-?-?-?-?-?- 40w 1d 272 lb 4 oz (+34 lb 4 oz) 107/62 Negative -?-?-?-?-?-?-?-?-?-?-?-?- Negative 130 39 Cephalic 4 .5 -?-?-?-?-?-?-?-?-?-?-?-?- 90 -2 KW- no vb/ lof/ctx. good fm. membrane sweep today. IOL for wednesday NST FHR Rate Baby A Baseline: 125 Variability:: Moderate Accelerations:: 15 x 15 Decelerations:: None NST Reactive:: Yes FHR Category:: Category I Uterine Activity:: irregular Vital Signs Vital Signs Vital Signs: 01/26/25 09:26 01/26/25 09:26 01/26/25 09:26 Temperature 97.3 F L Temperature Source Temporal Pulse Rate Respiratory Rate 17 Blood Pressure BP Systolic BP Diastolic 01/26/25 09:27 01/26/25 09:27 01/26/25 12:11 Temperature Temperature Source Pulse Rate 89 Respiratory Rate Blood Pressure 129/84 H 149/70 H BP Systolic 129 149 BP Diastolic 84 70 01/26/25 12:11 Temperature Temperature Source Pulse Rate 86 Respiratory Rate Blood Pressure BP Systolic BP Diastolic Weight Weight: 267 lb 6 oz Body Mass Index (BMI) 41.8 Physical Exam Const alert, oriented x3 and no apparent distress General Appearance: cooperative, comfortable and well kempt Orientation / Consciousness: awake and oriented to person Exam Limitations: no limitations HEENT normocephalic Neck full ROM Chest inspection of chest normal Resp normal respiratory effort, normal air movement and no retractions Effort and Inspection: able to speak in complete sentences and symmetric chest movement Cardio regular rate Peripheral Pulses: pulses 2+ throughout GI normal to inspection, nondistended, normoactive bowel sounds Inspection: gravid no CVA tenderness and appearance of the vagina normal External Female Exam: normal appearance of the urethra; Negative for external lesion OB / External & Speculum: external exam normal Manual OB Exam: estimated gestational size appropriate and presentation cephalic Uterus Palpation: Negative for uterus tender Extremity normal to inspection Skin no rashes or lesions noted Neuro deep tendon reflexes 2+ bilaterally and gait normal Motor Exam: strength 5/5 throughout and clonus absent Psych Activity / Motor Behavior: appropriate eye contact Speech: normal speech Labs Labs Labs: Blood Type O POSITIVE Antibody Screen NEGATIVE Hct 39.3 % (37-47) Hgb 13.1 g/dL (12.0-15.0) Obstetrics Ultrasound Syphilis Total Ab Nonreactive (Nonreactive) Rubella IgG Antibody Reactive (Nonreactive) Hep Bs Antigen Non-Reactive (Nonreactive) Hepatitis C Antibody Non-Reactive (Nonreactive) Chlamydia DNA (ARSENIO) Negative (Negative) N.gonorrhoeae DNA (ARSENIO) Negative (Negative) HIV 1&2 Antibody Non-Reactive (Nonreactive) Glucose 1 Hr 50 gm 122 mg/dL (70-140) Assessment & Plan (1) Macrosomia affecting management of mother: COMMENT: Normal 1 hr. hx of 9lb9oz (2) Obesity (BMI 35.0-39.9 without comorbidity): COMMENT: HgbA1c (3) Supervision of high-risk : QUALIFIERS: Trimester: second trimester Qualified Code(s): O09.92 - Supervision of high risk , unspecified, second trimester COMMENT: PRR, , JENNA 01/21/25, ROMAN Pascual, Mynor (4) : QUALIFIERS: Weeks of gestation: 40 weeks Qualified Code(s): Z3A.40 - 40 weeks gestation of COMMENT: Neg GBS. normal anatomy, declined genetic & carrier testing (5) Varicose veins during : COMMENT: bilat claves, mild (6) SROM (spontaneous rupture of membranes): COMMENT: around 0630, clear fluid. pitocin per protocol if no change in 6 hours. PLAN: Plan Patient presents SROM at 0630, plan expectant management for , pitocin/AROM P RN if needed. Pain management: plans epidural. GBS negative. Management of any complications: none I have reviewed the [facility] and made any clinically relevant updates. Dr. munguia updated on admission, exam and poc.
--- NOTE | 2025-01-26 16:57 | PCM.PN.CNM ---
Subjective Subjective coping through contractions. Objective Data Objective Data Vital Signs: Vital Signs Temp Pulse Resp BP 97.6 F L 97 18 138/70 H 01/26/25 15:47 01/26/25 15:48 01/26/25 15:47 01/26/25 15:48 Weight: 267 lb 6 oz Body Mass Index (BMI) 41.8 Intake & Output: Intake and Output for Last 24 Hours 01/24/25 01/25/25 01/26/25 23:59 23:59 23:59 Intake Total 16.23 / 16.23 Balance 16.23 / 16.23 Lab / Micro Data 01/26/25 10:50 Labs: Laboratory Results - last 24 hr 01/26/25 09:30: Vag Amniotic Fld Detect POSITIVE H 01/26/25 10:50: WBC 13.5 H, RBC 4.35, Hgb 13.1, Hct 39.3, MCV 90.3, MCH 30.1, MCHC 33.3, RDW Std Deviation 45.1 H, RDW Coeff of Gladys 13.7, Plt Count 267, MPV 11.5, Immature Gran % (Auto) 0.400, Neut % (Auto) 76.2 H, Lymph % (Auto) 15.6 L, [place] % (Auto) 7.1, Eos % (Auto) 0.5, Baso % (Auto) 0.2, Absolute Neuts (auto) 10.3 H, Absolute Lymphs (auto) 2.10, Nucleated RBC % 0, Syphilis Total Ab Nonreactive, Blood Type O POSITIVE, Antibody Screen NEGATIVE NST FHR Rate Baby A Baseline: 130 Variability:: Moderate Accelerations:: 15 x 15 Decelerations:: None NST Reactive:: Yes FHR Category:: Category I Uterine Activity:: q3 minutes Assessment & Plan (1) SROM (spontaneous rupture of membranes): COMMENT: around 0630, clear fluid. pitocin per protocol if no change in 6 hours. PLAN: currently on 10u of pitocin. increase per protocol. (2) Macrosomia affecting management of mother: COMMENT: Normal 1 hr. hx of 9lb5oz (3) Supervision of high-risk : QUALIFIERS: Trimester: second trimester Qualified Code(s): O09.92 - Supervision of high risk , unspecified, second trimester COMMENT: PRR, , JENNA 01/21/25, ROMAN Pasucal, Mynor (4) : QUALIFIERS: Weeks of gestation: 40 weeks Qualified Code(s): Z3A.40 - 40 weeks gestation of COMMENT: Neg GBS. normal anatomy, declined genetic & carrier testing PLAN: Plan coping with contractions. AROM forebag for large amount with thin mec. current tracing: cat 1 FHT: Moderate variability reactive no decelerations category I tracing [place]: q3 Contractions reviewed tracing abnormalities since last note: none A/P: continue pitocin per procotol. freq position changes- currently hands and knees re-eval cervical exam in 2-4 hours.
--- NOTE | 2025-01-26 18:54 | OB.VAGDELI_ITS ---
Assessment & Plan (1) (spontaneous vaginal delivery): COMMENT: LC Jimmy 40.5 SROM Maternal Data Information JENNA Calculator Estimated Delivery Date Method Current WG Current Estimate 01/21/25 Ultrasound #1 40w 5d Other Estimates 02/01/25 LMP (Certain) 39w 1d Final JENNA: 01/21/25 Final JENNA Source: LMP Gestational age: 40.5 Vaginal Delivery Maternal Presentation Maternal Presentation: Spontaneous Rupture of Membranes Maternal Presentation: at 40.5 with SROM since 629, augmented with pitocin and AROM. Vaginal Delivery Information Procedure Performed: Spontaneous Vaginal Delivery Date of Procedure: 01/26/25 Pre-Procedure Diagnosis: see problem list Post-Procedure Diagnosis: Type of anesthesia: None Estimated Blood Loss: 150 Time of Delivery: 18:34 Findings Description of procedure: Patient began pushing and delivered the head in the MAJO presentation. The head was delivered atraumatically. The anterior and posterior shoulders delivered without complication followed by the rest of the infant and the infant was placed on the maternal abdomen. Delayed cord clamping was employed for approximately 3 minutes. Cord was clamped and cut and gentle traction was a pplied to the cord and the placenta delivered spontaneously immediately following it was noted to be intact with three-vessel cord. The perineum and vagina were inspected and noted to have no laceration. EBL was 150cc. Patient and infant tolerated delivery well. Presentation: Vertex Amniotic Membrane Rupture Type: Spontaneous Amniotic Fluid Description: Lightly stained meconium Placental Delivery Description: Spontaneous Placenta Disposition: [facility] Cord Vessel Description: 3 Vessels Cord Entanglement: None A Gender: Male (1 minute): 8 (5 minute): 9 Delayed Cord Clamping: Yes Post Vaginal Deli Medications given after delivery: IV Pitocin Episiotomy Description: None Laceration: None Procedures Urinary/Genital [id number]: [id number] Vaginal Delivery [facility]
--- NOTE | 2025-01-26 18:57 | DCINST_ITS ---
Discharge Instructions Diet Discharge Diet: No restrictions DC O2, CPAP, BIPAP needs Home O2 Discharge instructions: No Dressing / Incision Discharge Activity: May Not Drive and May Shower May resume sexual activity in: 6 weeks Weight Bearing Status: Full weight bearing Dressing / Incision Call your doctor if your incision/area has: Sudden Increased Bleeding, Increased Pain/ Swelling and Foul Smelling Discharge Call your doctor if you observe: Fever of 101 or Higher, Numbness or Tingling, Change in Color, Inability to urinate, Inability to have a bowel movement, Using more than 1 pad per hour, Shortness of breath, Dizziness, Fainting spells, Chest pain, Calf discomfort and Uncontrolled pain Follow Up Care Please Follow Up With: Michell Bonner CNM When: 6 weeks , please call office to make an appointment. Congratulations on the of your baby! Test Results: Test results from this visit will be discussed in further detail at your follow- up appointment, if applicable. Discharge Plan Admission Admit Date/Time: 01/26/25 10:22 Attending Provider: Michell Bonner Primary Care Provider: Care Physician,Yolis Primary Discharge Orders/Prescriptions Prescriptions: No Action PNV-DHA 27 mg iron-1 mg -300 mg capsule 1 cap PO DAILY Referrals / Follow Up: Care Physician,No Primary [Primary Care Provider] -
[2025-01-26] MEDS: Oxytocin 15 Units/NS 250ml 15 UNITS/250 ML IV.SOLN 83 UNITS IV (19:15)
[2025-01-27] VITALS (10 sets, daily range): BP systolic 113–120; BP diastolic 58–67; PULSE 92–101; RESP 14–16; TEMP 36.8–37.4; O2SAT 96–99
--- NOTE | 2025-01-27 08:23 | PCM.PN.CNM ---
Subjective Subjective Patient doing well without complaints. Tolerating PO. Ambulating and voiding without difficulty. Feeding well. Denies chest pain, shortness of breath, calf pain/swelling, fevers, chills, lightheadedness. Objective Data Objective Data Vital Signs: Vital Signs Temp Pulse Resp BP Pulse Ox O2 Del Method 98.2 F 98 16 119/67 96 Room Air 01/27/25 03:57 01/27/25 08:19 01/27/25 03:57 01/27/25 08:19 01/27/25 08:19 01/27/25 03:57 Oxygen Delivery Method Room Air Weight: 267 lb 6 oz Body Mass Index (BMI) 41.8 Intake & Output: Intake and Output for Last 24 Hours 01/25/25 01/26/25 01/27/25 23:59 23:59 23:59 Intake Total 877.66 / 877.66 Output Total 550 / 550 400 / 400 Balance 327.66 / 327.66 -400 / -400 Lab / Micro Data 01/26/25 10:50 Labs: Laboratory Results - last 24 hr 01/26/25 09:30: Vag Amniotic Fld Detect POSITIVE H 01/26/25 10:50: WBC 13.5 H, RBC 4.35, Hgb 13.1, Hct 39.3, MCV 90.3, MCH 30.1, MCHC 33.3, RDW Std Deviation 45.1 H, RDW Coeff of Gladys 13.7, Plt Count 267, MPV 11.5, Immature Gran % (Auto) 0.400, Neut % (Auto) 76.2 H, Lymph % (Auto) 15.6 L, [place] % (Auto) 7.1, Eos % (Auto) 0.5, Baso % (Auto) 0.2, Absolute Neuts (auto) 10.3 H, Absolute Lymphs (auto) 2.10, Nucleated RBC % 0, Syphilis Total Ab Nonreactive, Blood Type O POSITIVE, Antibody Screen NEGATIVE Physical Exam Const alert and oriented x3 Lymph Lymphatic: no lymphadenopathy noted Chest inspection of chest normal and inspection of breasts normal Resp normal respiratory effort and normal air movement Cardio regular rate and regular rhythm GI normal to inspection, nondistended, normoactive bowel sounds Uterus Palpation: uterus fundus firm Extremity normal to inspection, full ROM and no calf tenderness Skin no rashes or lesions noted Psych mental status grossly normal Assessment & Plan (1) (spontaneous vaginal delivery): COMMENT: LC Jimmy 40.5 SROM (2) Supervision of high-risk : QUALIFIERS: Trimester: second trimester Qualified Code(s): O09.92 - Supervision of high risk , unspecified, second trimester COMMENT: PRR, , JENNA 01/21/25, PC Ankur, Mynor (3) : QUALIFIERS: Weeks of gestation: 40 weeks Qualified Code(s): Z3A.40 - 40 weeks gestation of COMMENT: Neg GBS. normal anatomy, declined genetic & carrier testing (4) Varicose veins during : COMMENT: bilat claves, mild PLAN: Plan s/p PPD # 1 1. routine post delivery care 2. breast feeding- support given 3. rh positive 4. rubella immune 5. d/c home today
== END 2025-01-27 20:22 | disposition home or self-care (01) | DRG 807 ==
LOC: WPOUT 10:28 → WP 10:29
PROVIDERS: Admitting Provider Registered Nurse; Referring Provider Registered Nurse; Visit Provider Registered Nurse
DX: O42.02 Full-term premature rupture of membranes, onset of labor within 24 hours of rupture (principal); Z37.0 Single live birth; O77.0 Labor and delivery complicated by meconium in amniotic fluid; O99.214 Obesity complicating childbirth; Z3A.40 40 weeks gestation of pregnancy; Z87.59 Personal history of other complications of pregnancy, childbirth and the puerperium
CPT/HCPCS: 59025; 59050; 84112; 85025; 86780; 86850; 86900; 86901

== ENCOUNTER → 2025-03-05 | Outpatient (CLI) | payer OTHER, SELFPAY ==
[2025-03-07 14:08] LABS: HPV APTIMA, High Risk Negative (Negative)
== END | disposition home or self-care (01) ==
PROVIDERS: Visit Provider Nurse Practitioner Women's Health
DX: Z12.4 Encounter for screening for malignant neoplasm of cervix (principal)
CPT/HCPCS: 87624; 88175; G0145